=== PATIENT | female | born 1990 | race Hispanic/Latino ===

== ENCOUNTER 2024-12-13 04:42 | Emergency (ER) | payer BC, SELFPAY ==
[2024-12-13] MEDS ORDERED: NA CHLORIDE 0.9% 1,000 ML ONE (05:13)
[2024-12-13 06:02] LABS: Absolute Eosinophils 0.1 K/uL (0-0.5); Absolute Lymphocytes (CBC) 1.8 K/uL (0.7-4.9); Absolute Monocytes 0.7 K/uL (0.1-1.3); Absolute Neutrophil 6.1 K/uL (1.8-8.0); Basophils % 0.5 % (0-1.3); Eosinophils % 1.2 % (0-4.4); Hematocrit 36.8 % (36.0-45.0); Hemoglobin 12.6 g/dL (12.0-15.0); Lymphocytes % 20.4 % (15.3-44.8); MCH 30.4 pg (27.0-35.0); MCHC 34.1 g/dL (32.0-36.0); MPV 10.7 fL (7.6-11.3); Monocytes % 8.4 % (3.3-12.3); Neutrophils % 69.5 % (41.7-73.7); Nucleated Red Blood Cells % 0.2 % (0-0); Platelets 243 thou/uL (152-406); RBC Red Blood Cell Count 4.13 M/uL (3.86-4.86); Red Cell Distribution Width 12.5 % (12.1-15.2)
[2024-12-13 06:10] LABS: ALT/SGPT 37 U/L (13-56); AST/SGOT 17 U/L (15-37); Albumin 3.3 g/dL (3.4-5.0); Albumin/Globulin Ratio 0.8 (1.1-1.8); Alkaline Phosphatase 101 U/L (45-117); Anion Gap 8.6 mEq/L (5.0-15.0); BUN Blood Urea Nitrogen 12 mg/dL (7-18); Bicarbonate 24 mEq/L (21-32); Bilirubin Total 0.3 mg/dL (0.2-1.0); Globulin 4.4 g/dL (2.3-3.5); Glomerular Filtration Rate 121 ml/min (=/>90); Glucose Level 108 mg/dL (74-106); NT PRO-BNP 247 pg/mL (<125); Potassium 3.6 mEq/L (3.5-5.1); Protein, Total 7.7 g/dL (6.4-8.2); Sodium Level 136 mEq/L (136-145); Troponin High Sensitivity 26.2 pg/mL (<58.9)
[2024-12-13 06:15] LABS: D-Dimer 0.868 FEUug/mL (0-0.500); PT Prothrombin Time 11.8 SECONDS (9.4-12.5); Protime INR 1.13
[2024-12-13 06:20] LABS: Bilirubin Direct < 0.2 mg/dL (0-0.2); Bilirubin Indirect, Calculated 0.1 mg/dL (0.2-0.8)
[2024-12-13] MEDS ORDERED: ASPIRIN 81 MG CHEWABLE TABLET ONE (06:20)
[2024-12-13] MEDS ORDERED: KETOROLAC 30 MG/ML INJ ONE (06:20)
--- NOTE | 2024-12-13 06:29 | RAD REPORT ---
EXAMINATION: Chest Single View CLINICAL HISTORY: CHEST PAIN COMPARISON: None FINDINGS: The lungs are clear. There is no pleural effusion or pneumothorax. The cardiomediastinal silhouette i s without acute process. The osseous structures are without acute process. IMPRESSION: No acute process. RECOMMENDATIONS: Electronically signed by: Isaias Driver MD 12/13/2024 06:12 AM [facility] Due to temporary technical issues with the PACS/[employer] reporting system, reports are being alec d by the in-house radiologist without review as a courtesy to ensure prompt reporting the interpreting radiologist is fully responsible for the content of the report. Transcribed Date/Time: 12/13/2024 6:29 AM
--- NOTE | 2024-12-13 07:16 | RAD REPORT ---
EXAMINATION: CTA CHEST PE CLINICAL INDICATION: CHEST PAIN TECHNIQUE: This examination was performed according to an angiographic protocol with 3D post-processi ng. This involves 3D reconstructions, MIPs, volume rendered images and/or shaded surface rendering. One or more of the following dose reduction techniques were used: Automated exposure control, adjustm ent of the mA and/or kV according to patient size, and/or iterative reconstruction. Unless otherwise specified, incidental findings do not require dedicated imaging follow-up. COMPARISON: No prior exam. FINDINGS: PULMONARY ARTERIES: Normal caliber. No evidence of pulmonary emboli to the subsegmental level. THORACIC AORTA: Normal caliber and configuration. LUNGS: No evidence of airspace or interstitial process. No nodules. PLEURA: No pleural effusion. No pneumothorax. MEDIASTINUM AND LYMPH NODES: No mediastinal mass or fluid collection. Normal size mediastinal, hilar, and axillary lymph nodes. OSSEOUS STRUCTURES AND CHEST WALL: Intact. UPPER ABDOMEN: No significant abnormalities. IMPRESSION: No evidence of pulmonary emboli to the subsegmental level.
--- NOTE | 2024-12-13 07:25 | EDPHYS ---
Physician Documentation [facility] Name: Claudia Elaine Age: 34 yrs Sex: Female : 1990 Arrival Date: 12/13/2024 Time: 04:42 Bed 4 Private MD: ED Physician Darryl Frias HPI: 12/13 04:54 This 34 yrs old Female presents to ER via Unassigned with complaints of sp4 Shortness Of Breath, Chest Pressure. 06:12 34-year-old female Presents with shortness of breath and chest pressure. Patient sp4 reports associated left neck pain for the past 2 days and also chest pressure and diarrhea without vomiting.. History of x 3.. 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 - Infectious Disease History:: Denies. - Social history:: Smoking status: Patient denies any tobacco usage or history of. Patient/guardian denies using alcohol, street drugs. - Family history:: not pertinent. ROS: 06:12 Constitutional: Negative for fever, chills, and weight loss, positive chest pressure, sp4 positive neck pain, positive diarrhea Eyes: Negative for injury, pain, redness, and discharge, 06:12 All other systems are negative, Exam: 06:12 Constitutional: This is a well developed, well nourished patient who is awake, alert, sp4 and in no acute distress. Head/Face: Normocephalic, atraumatic. Eyes: Pupils equal round and reactive to light, extra-ocular motions intact. Lids and lashes normal. Conjunctiva and sclera are not injected. Cornea within normal limits. Periorbital areas with no swelling, redness, or edema. ENT: Nares patent. No nasal discharge, no septal abnormalities noted. Tympanic membranes are normal and external auditory canals are clear. Oropharynx with no redness, swelling, or masses, exudates, or evidence of obstruction, uvula midline. Mucous membranes moist. Neck: Trachea midline, no thyromegaly or masses palpated, and no cervical lymphadenopathy. Supple, full range of motion without nuchal rigidity, or vertebral point tenderness. Chest/axilla: Normal chest wall appearance and motion. Nontender with no deformity. No lesions are appreciated. Cardiovascular: Regular rate and rhythm with a normal S1 and S2. No gallops, murmurs, or rubs. Normal PMI, no JVD. No pulse deficits. Respiratory: Lungs have equal breath sounds bilaterally, clear to auscultation and percussion. No rales, rhonchi or wheezes noted. No increased work of breathing, no retractions or nasal flaring. Abdomen/GI: Soft, with normal bowel sounds. No distension or tympany. No guarding or rebound. No evidence of tenderness throughout. Back: No spinal tenderness. No costovertebral tenderness. Skin: Warm, dry with normal turgor. Normal color with no rashes, no lesions, and no evidence of cellulitis. MS/ Extremity: Pulses equal, no cyanosis. Neurovascular intact. Full, normal range of motion. Neuro: Awake and alert, GCS 15, oriented to person, place, time, and situation. Cranial nerves II-XII grossly intact. Motor strength 5/5 in all extremities. Sensory grossly intact. Psych: Awake, alert, with orientation to person, place and time. Behavior, mood, and affect are within normal limits 06:12 ECG was reviewed by the Attending Physician. EKG at 0506 normal sinus rhythm rate 95. LVH Vital Signs: 05:03 BP 136 / 93; Pulse 98; Resp 18; Temp 99.1; Pulse Ox 100% ; Weight 95.25 kg; Height 5 bm8 ft. 3 in. ; Pain 4/10; 06:23 BP 147 / 98; Pulse 87; Resp 21; Temp 99.1; Pulse Ox 100% ; Pain 7/10; bm8 07:45 BP 134 / 82; Pulse 85; Resp 16; Pulse Ox 99% ; ko1 05:03 Body Mass Index 37.20 (95.25 kg, 160.02 cm) bm8 05:03 Pain Scale: Adult bm8 06:23 Pain Scale: Adult bm8 [place] Coma Score: 05:10 Eye Response: spontaneous(4). Motor Response: obeys commands(6). Verbal Response: bm8 oriented(5). Total: 15. 06:23 Eye Response: spontaneous(4). Motor Response: obeys commands(6). Verbal Response: bm8 oriented(5). Total: 15. MDM: 06:59 ED course: EXAMINATION: Chest Single View CLINICAL HISTORY: CHEST PAIN COMPARISON: None sp4 FINDINGS: The lungs are clear. There is no pleural effusion or pneumothorax. The cardiomediastinal silhouette is without acute process. The osseous structures are without acute process. IMPRESSION: No acute process. RECOMMENDATIONS. 07:02 Medical Screening Exam initiated ec2 07:03 Data reviewed: vital signs, nurses notes. ec2 07:04 ED course: pt s/o to me by previous physician, in brief arrives today for cp,sob, ec2 diarrhea, workup remarkable for elevated d-dimer, plan to f/u ctpe. 07:24 ED course: CT scan of the chest negative for acute intrathoracic process. Will ec2 discharge home, suspect viral infection. Return precautions given.. 12/13 04:59 Order name: Basic Metabolic Panel; Complete Time: 06:24 sp4 12/13 04:59 Order name: CBC with Diff; Complete Time: 06:15 sp4 12/13 04:59 Order name: D-Dimer; Complete Time: 06:15 sp4 12/13 04:59 Order name: LFT's; Complete Time: 06:24 sp4 12/13 04:59 Order name: Magnesium; Complete Time: 06:24 sp4 12/13 04:59 Order name: NT PRO-BNP; Complete Time: 06:24 sp4 12/13 04:59 Order name: PT-INR; Complete Time: 06:15 sp4 12/13 04:59 Order name: Troponin HS; Complete Time: 06:24 sp4 12/13 05:11 Order name: Test, Serum; Complete Time: 06:15 bm8 12/13 04:59 Order name: XRAY Chest (1 view); Complete Time: 07:24 sp4 12/13 06:16 Order name: CT Chest For PE Angio; Complete Time: 07:24 sp4 12/13 04:59 Order name: Cardiac monitoring; Complete Time: 05:11 sp4 12/13 04:59 Order name: EKG - Nurse/Tech; Complete Time: 05:11 sp4 12/13 04:59 Order name: IV Saline Lock; Complete Time: 05:12 sp4 12/13 04:59 Order name: Labs collected and sent; Complete Time: 05:12 sp4 12/13 04:59 Order name: O2 Per Protocol; Complete Time: 05:12 sp4 12/13 04:59 Order name: O2 Sat Monitoring; Complete Time: 05:12 sp4 EC:06 Rate is 95 beats/min. Rhythm is regular, Normal Sinus Rhythm. QRS [place] is Normal. [place] sp4 interval is normal. QRS interval is normal. QT interval is normal. No Q waves. T waves are Normal. T waves are Flattened in leads V4, V5, V6. No ST changes noted. Clinical impression: No evidence of ischemia. Interpreted by me. Reviewed by me. Administered Medications: 05:15 Drug: NS 0.9% IV 1000 ml IV at 1 bolus Per protocol; to be given as a bolus over 60 bm8 minutes Route: IV; Rate: 1 bolus; Site: left antecubital; 07:06 Follow up: Response: No adverse reaction; IV Status: Completed infusion; IV Intake: ko1 1000ml 06:20 Drug: Aspirin PO Chewable Tablet 324 mg PO once; 81 mg tablets x 4 Route: PO; bm8 07:06 Follow up: Response: No adverse reaction ko1 06:21 Drug: Ketorolac IVP 30 mg IVP once Route: IVP; Site: left antecubital; bm8 07:06 Follow up: Response: No adverse reaction ko1 Disposition Summary: 12/13/24 07:25 Discharge Ordered Notes: Location: Home ec2 Condition: Stable ec2 Diagnosis - Viral infection, unspecified ec2 Followup: ec2 - With: Private Physician - When: - Reason: Re-evaluation by your physician Discharge Instructions: - Discharge Summary Sheet ec2 - Viral Illness, Adult ec2 Forms: - Work release form ec2 - Medication Reconciliation Form ec2 - Antibiotic Education ec2 - Prescription Opioid Use ec2 - Patient Portal Instructions ec2 - Leadership Thank You Letter ec2 Prescriptions: - Compazine 10 mg Oral Tablet - take 1 tablet ORAL route every 8 hours As needed; 20 tablet; Refills: 0, ec2 Product Selection Permitted Signatures: Dispatcher [employer] Jhony Geller MD MD sp4 Darryl Frias MD MD ec2 Ivan Hutton RN RN bm8 Mae Matias RN ko1 Corrections: (The following items were deleted from the chart) 05:00 05:00 Chest Single View+[email or web address] ordered. EDMS EDMS
--- NOTE | 2024-12-13 07:25 | ER ---
Nurse's Notes [facility] Name: Claudia Elaine Age: 34 yrs Sex: Female : 1990 Arrival Date: 12/13/2024 Time: 04:42 Bed 4 Private MD: Diagnosis: Viral infection, unspecified Presentation: 12/13 05:03 Chief complaint: Patient states: I woke up this morning to bad chest pressure. bm8 yesterday and neck pain and didn't feel well. Coronavirus screen: At this time, the client does not indicate any symptoms associated with coronavirus-19. Ebola Screen: Patient negative for fever greater than or equal to 101.5 degrees Fahrenheit, and additional compatible Ebola Virus Disease symptoms Patient denies exposure to infectious person. Patient denies travel to an Ebola-affected area in the 21 days before illness onset. No symptoms or risks identified at this time. Initial Sepsis Screen: Does the patient meet any 2 criteria? No. Patient's initial sepsis screen is negative. Does the patient have a suspected source of infection? No. Patient's initial sepsis screen is negative. Risk Assessment: Do you want to hurt yourself or someone else? Patient reports no desire to harm self or others. Onset of symptoms was December 09, 2024. 05:03 Method Of Arrival: Ambulatory bm8 05:03 Acuity: JULIA 2 bm8 Triage Assessment: 05:05 General: Appears in no apparent distress. comfortable, Behavior is calm, cooperative, bm8 appropriate for age. Pain: Complains of pain in chest left side of neck Pain currently is 4 out of 10 on a pain scale. Quality of pain is described as aching, pressure. EENT: No deficits noted. No signs and/or symptoms were reported regarding the EENT system. Neuro: No deficits noted. Level of Consciousness is awake, alert, obeys commands, Oriented to person, place, time, situation, Appropriate for age. Cardiovascular: Reports chest pain, Heart tones S1 S2 present Capillary refill < 3 seconds in bilateral fingers Patient's skin is warm and dry. Rhythm is sinus rhythm. Respiratory: Reports shortness of breath at rest Airway is patent Trachea midline Respiratory effort is even, unlabored, Respiratory pattern is regular, symmetrical, Breath sounds are clear bilaterally. Onset: The symptoms/episode began/occurred since Sunday, sunday, the patient has moderate shortness of breath. Respiratory:. GI: Reports nausea. : No signs and/or symptoms were reported regarding the genitourinary system. Derm: No signs and/or symptoms reported regarding the dermatologic system. Musculoskeletal: Circulation, motion, and sensation intact. Capillary refill < 3 seconds, in bilateral fingers. Range of motion: intact in all extremities, Reports pain in left neck. 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 - Infectious Disease History:: Denies. - Social history:: Smoking status: Patient denies any tobacco usage or history of. Patient/guardian denies using alcohol, street drugs. - Family history:: not pertinent. Screenin:10 [facility] ED Fall Risk Assessment (Adult) History of falling in the last 3 months, bm8 including since admission No falls in past 3 months (0 pts) Confusion or Disorientation No (0 pts) Intoxicated or Sedated No (0 pts) Impaired Gait No (0 pts) Mobility Assist Device Used No (0 pt) Altered Elimination No (0 pt) Score/Fall Risk Level 0 - 2 = Low Risk Oriented to surroundings, Maintained a safe environment, Educated pt \T\ family on fall prevention, incl call for assistance when getting out of bed, Assessed \T\ reinforced patient's understanding of fall precautions, Hourly rounding (assess needs \T\ fall precautionary measures) done, Used ambulatory aids as needed (educated on \T\ assisted with), Used gait belt as appropriate. Abuse screen: Denies threats or abuse. Nutritional screening: No deficits noted. Tuberculosis screening: No symptoms or risk factors identified. Assessment: 05:10 Reassessment: see triage assessment. bm8 06:21 Reassessment: Patient and/or family updated on plan of care and expected duration. Pain bm8 level reassessed. Patient is alert, oriented x 3, equal unlabored respirations, skin warm/dry/pink. Patient states symptoms have not improved. Cardiovascular: Reports chest pain, shortness of breath, Heart tones S1 S2 present Capillary refill < 3 seconds in bilateral fingers Patient's skin is warm and dry. Chest pain is described as Pain is 7 out of 10 on a pain scale. quality is pressure, sharp, is located in right anterior. Respiratory: Airway is patent Trachea midline Respiratory effort is even, unlabored, Respiratory pattern is regular, symmetrical, Breath sounds are clear bilaterally. 07:45 Cardiovascular: Rhythm is regular. ko1 Vital Signs: 05:03 BP 136 / 93; Pulse 98; Resp 18; Temp 99.1; Pulse Ox 100% ; Weight 95.25 kg; Height 5 bm8 ft. 3 in. ; Pain 4/10; 06:23 BP 147 / 98; Pulse 87; Resp 21; Temp 99.1; Pulse Ox 100% ; Pain 7/10; bm8 07:45 BP 134 / 82; Pulse 85; Resp 16; Pulse Ox 99% ; ko1 05:03 Body Mass Index 37.20 (95.25 kg, 160.02 cm) bm8 05:03 Pain Scale: Adult bm8 06:23 Pain Scale: Adult bm8 [place] Coma Score: 05:10 Eye Response: spontaneous(4). Motor Response: obeys commands(6). Verbal Response: bm8 oriented(5). Total: 15. 06:23 Eye Response: spontaneous(4). Motor Response: obeys commands(6). Verbal Response: bm8 oriented(5). Total: 15. ED Course: 04:50 Patient arrived in ED. gm2 04:54 Jhony Koo MD is Attending Physician. sp4 05:03 Ivan Hutton, RN is Primary Nurse. bm8 05:05 Triage completed. bm8 05:05 Arm band placed on right wrist. bm8 05:10 Patient has correct armband on for positive identification. Client placed on continuous bm8 cardiac and pulse oximetry monitoring. NIBP monitoring applied. tile inspector on. Pulse ox on. NIBP on. Sitter at bedside. Door closed. Noise minimized. Warm blanket given. Pillow given. Verbal reassurance given. Head of bed elevated. 05:15 No provider procedures requiring assistance completed. Initial lab(s) drawn, by len paris sent to lab. EKG done, by ED staff, reviewed by Jhony Koo MD. Inserted saline lock: 20 gauge in left antecubital area, using aseptic technique. Blood collected. Flushed with 10 mL NS. Patient maintains SpO2 saturation greater than 95% on room air. 05:51 XRAY Chest (1 view) In Process Unspecified. EDMS 07:00 CT Chest For PE Angio In Process Unspecified. EDMS 07:01 Attending Physician role handed off by Jhony Koo MD ec2 07:01 Darryl Frias MD is Attending Physician. ec2 07:45 Provided Education on: discharge. ko1 07:45 IV discontinued, intact, bleeding controlled, No redness/swelling at site. Pressure ko1 dressing applied. Administered Medications: 05:15 Drug: NS 0.9% IV 1000 ml IV at 1 bolus Per protocol; to be given as a bolus over 60 bm8 minutes Route: IV; Rate: 1 bolus; Site: left antecubital; 07:06 Follow up: Response: No adverse reaction; IV Status: Completed infusion; IV Intake: ko1 1000ml 06:20 Drug: Aspirin PO Chewable Tablet 324 mg PO once; 81 mg tablets x 4 Route: PO; bm8 07:06 Follow up: Response: No adverse reaction ko1 06:21 Drug: Ketorolac IVP 30 mg IVP once Route: IVP; Site: left antecubital; bm8 07:06 Follow up: Response: No adverse reaction ko1 Medication: 05:10 VIS not applicable for this client. bm8 Intake: 07:06 IV: 1000ml; Total: 1000ml. ko1 Outcome: 07:25 Discharge ordered by . ec2 07:45 Discharged to home ambulatory, with family, ko1 07:45 Condition: stable 07:45 Discharge instructions given to patient, Instructed on discharge instructions, follow up and referral plans. medication usage, Demonstrated understanding of instructions, follow-up care, medications, Prescriptions given X 1, 07:47 Patient left the ED. ko1 Signatures: Dispatcher [employer] Mae Mendoza, RN RN ko1 Jhony Koo MD MD sp4 Darryl Frias MD MD ec2 Tangela Cullen 2 Ivan Hutton, RN RN bm8
[2024-12-13 07:57] VITALS: TEMP 99.1
[2024-12-13 08:08] VITALS: BP 134/82; O2SAT 99
== END 2024-12-13 07:47 | disposition home or self-care (01) ==
LOC: ER 04:42
DX: B34.9 Viral infection, unspecified (principal)
CPT/HCPCS: 36415; 71045; 71275; 80048; 80076; 83735; 83880; 84484; 84703; 85025; 85379; 85610; 93005; 96361; 96374; 99285; J7030; Q9967